=== PATIENT | male | born 1965 | race Caucasian/White ===

== ENCOUNTER 2024-08-31 14:06 | Emergency (ER) | payer OTHER, SELFPAY ==
[2024-08-31 14:12] VITALS: BP 150/94; PULSE 71; TEMP 36.9; O2SAT 98; BMI 25.1
--- NOTE | 2024-08-31 14:17 | XR_ITS ---
The [address] [address] Patient Name: LORETA PEARSON MRN: [id number] date: 1965 Sex: M Assigned Patient Location: ER Current Patient Location: Accession/Order Number: [id number] Exam Date: 08/31/2024 14:24 Report Date: 08/31/2024 15:05 At the request of: SHARI SARABIA Procedure: XR finger LT min 2V EXAM: XR finger LT min 2V HISTORY: left thumb laceration COMPARISON: None. TECHNIQUE: 2 views of the left FINDINGS: Soft tissue defect is seen about the ventral aspect of the distal left thumb, consistent with reported laceration. No radiopaque density is seen within the visualized soft tissues to suggest retained foreign body. No acute fracture is seen. Joint alignment is normal. XR/XR finger LT min 2V IMPRESSION: Soft tissue defect is seen about the ventral aspect of the distal left thumb, consistent with reported laceration. No radiopaque density is seen within the visualized soft tissues to suggest retained foreign body. No acute fracture is seen. Electronically authenticated by: RUBINA WALL Date: 08/31/2024 15:05
--- NOTE | 2024-08-31 14:25 | ED.SKABFB1 ---
HPI - Skin/Abscess/Foreign Bdy General Chief complaint: Skin/Abscess/Foreign Body Stated complaint: LACERATION Time Seen by Provider: 08/31/24 14:09 Source: patient Mode of arrival: walk-in Limitations: no limitations History of Present Illness HPI narrative: 59-year-old male arrives by private car for evaluation of laceration to left thumb. Patient was using table saw when he caught his left thumb on the blade. He is right-hand dominant. Believes his tetanus shot was 10 years ago. Bleeding controlled on arrival. Patient notes mild pain, did not take any medications prior to arrival. Patient appears in no distress. Tetanus up to date: no Severity: mild Quality: Denies burning Pain Consistency: Reports constant Relieving factors: Reports none Exacerbating factors: Reports none Treatments prior to arrival: Reports bandages Related Data Previous Rx's ?Medication ?Instructions ?Recorded cephalexin 500 mg capsule 500 mg PO TID 5 days #15 caps 08/31/24 ibuprofen 600 mg tablet 600 mg PO TID PRN pain #30 tabs 08/31/24 Allergies Allergy/AdvReac Type Severity Reaction Status Date / Time No Known Drug Allergies Allergy Verified 08/31/24 14:18 Review of Systems ROS Constitutional Denies: fever or chills Cardiovascular Denies: chest pain Respiratory Denies: shortness of breath Gastrointestinal Denies: abdominal pain Musculoskeletal Denies: back pain Integumentary/Breast Denies: rash Neurological Denies: headache Psychiatric Denies: anxiety PFSH PFSH Social History Little interest or pleasure in doing things: not at all Feeling down, depressed, or hopeless: not at all Exam Narrative Exam Narrative: Nurse's notes and vital signs reviewed. Patient is not hypoxic. General: The patient appears well and in no apparent distress. Patient is resting comfortably on cart. Skin: Warm, dry, no pallor noted. Avulsion noted to the pad of the left thumb, nail intact. No active bleeding. Head: Normocephalic, atraumatic Eye: Normal conjunctiva Respiratory: Patient is in no distress Musculoskeletal: The left wrist shows no obvious deformity. Full range of motion left thumb, no nail injury. 1.5cm by 1 cm area of missing skin. There was no swelling noted. The patient had full rom despite pain. The patient had tenderness to area of soft tissue skin avulson. no involvement over IP joint. The patient had no tenderness in the anatomical snuff box. The patient had no pain with axial loading of the thumb. Pulses are intact at brachial and radial 2+. There was no deficit at the elbow or shoulder. The patient has normal capillary refill to all distal digits. The patient has no evidence of cyanosis or mottling. The patient is able to flex and extend all digits without difficulty. Neurological: A&O x4, normal sensory, normal motor Psychiatric: Cooperative Constitutional Vital Signs, click to edit/add: Last Vital Signs Temp 98.5 F 08/31/24 14:12 Pulse 71 08/31/24 14:12 Resp 16 08/31/24 14:12 BP 150/94 H 08/31/24 14:12 Pulse Ox 98 08/31/24 14:12 O2 Del Method Room Air 08/31/24 14:12 Course Vital Signs Vital signs: Vital Signs Temperature 98.5 F 08/31/24 14:12 Pulse Rate 71 08/31/24 14:12 Respiratory Rate 16 08/31/24 14:12 Blood Pressure 150/94 H 08/31/24 14:12 Pulse Oximetry 98 08/31/24 14:12 Oxygen Delivery Method Room Air 08/31/24 14:12 Temperature 98.5 F 08/31/24 14:12 Pulse Rate 71 08/31/24 14:12 Respiratory Rate 16 08/31/24 14:12 Blood Pressure 150/94 H 08/31/24 14:12 Pulse Oximetry 98 08/31/24 14:12 Oxygen Delivery Method Room Air 08/31/24 14:12 MDM - Skin/Abscess/Foreign Bdy MDM Narrative Medical decision making narrative: Tetanus was updated, patient given Tylenol and Motrin for pain, the thumb was irrigated and soaked with chlorhexidine solution. His soft tissue is a repairable with avulsion, hemostasis achieved with direct pressure and Gelfoam padding, bulky gauze dressing applied. Wound care discussed. Will place on antibiotic given location and injury. X-ray discussed at bedside without evidence of bony involvement. The patient is to followup with primary care physician in next 2-3 days or to return to the emergency department should any of the signs or symptoms worsen or new symptoms develop. Patient had questions answered. The patient agrees with the following Diagnosis and Treatment plan and the patient will be discharged home. Imaging Data left thumb xray 3 view: My impression: Formal read pending, 3 view left thumb shows soft tissue defect consistent with laceration. No evidence of fracture, degenerative changes at the IP joint noted. Discharge Plan Discharge Chief Complaint: Skin/Abscess/Foreign Body Clinical Impression: Avulsion of skin of left thumb Patient Disposition: Home, Self-Care Time of Disposition Decision: 14:34 Condition: Good Prescriptions / Home Meds: New cephalexin 500 mg capsule 500 mg PO TID 5 Days Qty: 15 0RF ibuprofen 600 mg tablet 600 mg PO TID PRN (Reason: pain) Qty: 30 0RF Print Language: Upper Sorbian Instructions: Skin Avulsion (ED) Additional Instructions: Recommend appointment with your family doctor in 2 to 3 days to recheck wound. [facility] The ER if symptoms worsen or new symptoms develop. Gelfoam applied to wound should fall off on its own with new tissue granulation. Referrals: Physician,Non-Staff, MD [Primary Care Provider] - 1 week Ebony Yang NP [Physician] - As soon as possible Procedures ED Procedure Instructions Procedures Procedures: Left thumb was irrigated, soaked with chlorhexidine patient, patient had a Gelfoam applied to the area of abrasion, pressure dressing applied with tube gauze, neurovascular intact status post application. Recommend no heavy gripping with the left thumb.
[2024-08-31] MEDS: IBUPROFEN 600 MG TABLET PO (14:28)
[2024-08-31] MEDS: ACETAMINOPHEN 500 MG TABLET 1000 MG PO (14:28)
[2024-08-31] MEDS: ADACEL DIPH,PERTUSS(ACELL),TET VAC/PF 0.5 ML ADULT SYRINGE IM (14:29)
[2024-08-31] MEDS: SURGIFOAM GEL SPONGE SIZE 100 1 EACH TOPICAL (14:46)
== END 2024-08-31 15:02 | disposition home or self-care (01) ==
PROVIDERS: Emergency Provider Student in an Organized Health Care Education/Training Program; PCP Nurse Practitioner Family
DX: S61.002A Unspecified open wound of left thumb without damage to nail, initial encounter (principal); Z23 Encounter for immunization; W27.0XXA Contact with workbench tool, initial encounter
CPT/HCPCS: 73140; 90471; 90715; 99283